=== PATIENT | male | born 1980 | race Caucasian/White ===

== ENCOUNTER 2022-12-03 12:29 | Emergency (ER) | payer OTHER, SELFPAY ==
[2022-12-03 12:36] VITALS: BP 115/58; PULSE 90; RESP 18; TEMP 36.6; O2SAT 100
--- NOTE | 2022-12-03 13:06 | ED.GENADULT ---
HPI - General Adult General Chief complaint: Ear Stated complaint: Ear Problem Source: patient Mode of arrival: ambulatory Limitations: no limitations History of Present Illness HPI narrative: Patient presents for evaluation of a buzzing sensation in his right ear for the past few days. Symptoms are intermittent. He feels like there is wax in his ear. He has intermittent muffled hearing. He denies any tinnitus or drainage from the ear. He does smoke methamphetamine every few days, with last use 2 days ago. He has an occasional cough. No SOB, fever, chills, nausea, vomiting. He smokes 1 ppd. No additional complaints or concerns. Related Data Allergies Allergy/AdvReac Type Severity Reaction Status Date / Time No Known Allergies Allergy Verified 12/03/22 12:43 Review of Systems Review of Systems: CONSTITUTIONAL: Denies fever, chills, or sweats. EYES: Denies visual changes, redness, or discharge. ENT: Reports intermittent buzzing sensation in right ear with intermittent muffled hearing and sensation of wax in the ear. Denies drainage from the ear. CARDIOVASCULAR: Denies chest pain, palpitations, or edema. RESPIRATORY: Denies cough or dyspnea. GASTROINTESTINAL: Denies abdominal pain, nausea, vomiting, or diarrhea. GENITOURINARY: Denies dysuria or hematuria. SKIN: Denies rash or itching. MUSCULOSKELETAL: Denies back pain, joint pain, or myalgia. NEUROLOGIC: Denies headache, numbness, dizziness, or weakness. PSYCHIATRIC: Denies anxiety or depression. [facility] Past Medical History Medical History No pertinent past medical history Surgical History Surgical History No pertinent past surgical history Family History Family History Mother Family history non-contributory Social History Social History Smoking packs per day: 1 Smoking cigarettes per day: 20.0 Smoking status: Current every day smoker Substance use: current Substance use type: amphetamines Living arrangements: alone Gender identity (if verbalized by the patient): Male Spiritual care concerns: No Exam Narrative: GENERAL: Well-appearing, well-nourished, and in no acute distress. HEAD: Normocephalic, atraumatic. EYES: PERRLA and EOMI. ENT: Nares clear, no rhinorrhea or epistaxis. Mucous membranes moist. Oropharynx without tonsillar hypertrophy exudate or other lesions. Bilateral TMs pearly herring nonbulging. There is a small amount of cerumen noted in the right ear canal NECK: Supple. No adenopathy or masses. No carotid bruits or JVD CHEST: Clear to auscultation. No respiratory distress. No wheezes rales or rhonchi HEART: Regular rate and rhythm. No murmur heard. Normal peripheral pulses. ABDOMEN: Soft, nontender, nondistended, normal active bowel sounds. EXTREMITIES: Normal range of motion. No edema. SKIN: Warm, dry, no rash. NEURO: No focal deficits. Alert and oriented x3. PSYCH: Normal mood and affect. Course Course Emergency Course: This is a 42-year-old male who presented for evaluation of a buzzing sensation in the right ear with intermittent hearing loss. He has a small amount of cerumen in the right ear canal. I suspect that his symptoms may be related to methamphetamine use. Advised sobriety from illicit drugs. Follow up with primary provider outpatient. Debrox may help. Go to ER for paranoia, SI, HI. Patient in agreement with plan of care. Level of Care: Express Care Visit Vital Signs Vital signs: Vital Signs Temperature 36.6 C 12/03/22 12:36 Pulse Rate 90 12/03/22 12:36 Respiratory Rate 18 12/03/22 12:36 Blood Pressure 115/58 L 12/03/22 12:36 Pulse Oximetry 100 12/03/22 12:36 Oxygen Delivery Room Air 12/03/22 12:36 Temperature 36.6 C 12/03/22 12:36 Pulse
== END 2022-12-03 13:07 | disposition home or self-care (01) ==
PROVIDERS: Emergency Provider Nurse Practitioner; PCP Emergency Medicine
DX: H61.21 Impacted cerumen, right ear (principal); F15.90 Other stimulant use, unspecified, uncomplicated; F17.210 Nicotine dependence, cigarettes, uncomplicated
CPT/HCPCS: 99203; G0463